=== PATIENT | male | born 1930 ===

== ENCOUNTER 2017-09-29 07:21 | Emergency (ER) | payer MEDICARE ==
[~2017-09-29] VITALS: Ht 172.7 cm; Wt 81.7 kg
[~2017-09-29 07:21] MED LIST: AMOX TR-K CLV1 EAC1 PO; ASPIRIN EC81 MG PO; B COMPLEX WITH1 EACH PO; CELEBREX200 MG PO; DICLOFENAC POTA50 MG PO; DOK250 MG PO; ECOTRIN325 MG PO; HYDROCODON-ACE1 EA11 PO; IRON240 MG PO; IRON325 M1 PO; MIRALAX17 GM PO; MULTI VITAMIN1 EACH PO; OXYCODONE HCL5 MG PO; VITAMIN C500 M4 PO; XARELTO10 MG PO
[2017-09-29] MEDS ORDERED: CLEOCIN HCL300 MG PO (08:27)
== END 2017-09-29 08:42 | disposition home or self-care (01) ==
LOC: ED 07:21
DX: N48.22 Cellulitis of corpus cavernosum and penis (principal)
CPT/HCPCS: 81001; 87070; 87075; 87205; 99283

== ENCOUNTER 2019-11-09 23:57 | Emergency (ER) | payer MEDICARE ==
[~2019-11-09] VITALS: Ht 172.7 cm; Wt 81.6 kg
[~2019-11-09 23:57] MED LIST changes: +CLEOCIN HCL300 MG PO
[2019-11-10] MEDS ORDERED: LEVAQUIN750 MG PO (01:41)
== END 2019-11-10 01:50 | disposition home or self-care (01) ==
LOC: ED 23:57
DX: U07.1 COVID-19 (principal); J18.9 Pneumonia, unspecified organism; R73.9 Hyperglycemia, unspecified
CPT/HCPCS: 71045; 80053; 83605; 85025; 85610; 85730; 99284-25; C9803; U0002